=== PATIENT | female | born 1990 | race Caucasian/White ===

== ENCOUNTER 2018-04-26 11:34 | Emergency (ER) | payer BC ==
--- NOTE | 2018-04-26 11:52 | EDM.PDOC ---
ED HPI GENERAL MEDICAL PROBLEM - General Chief Complaint: [employer] Problem Stated Complaint: POSSIBLE MISCARIAGE Time Seen by Provider: 04/26/18 11:50 Source of Information: Reports: Patient, Family, Old Records, RN, RN Notes Reviewed History Limitations: Reports: No Limitations - History of Present Illness INITIAL COMMENTS - FREE TEXT/NARRATIVE: Patient presents to the emergency room at [facility] with concerns of possible spontaneous . The patient is currently 8 weeks 4 days . She states that she started having some scant vaginal bleeding last Friday with mild cramping. The patient was seen by her OB last Friday who offered her reassurance. Lab and urine studies were completed at that time. She did have a positive 2 days ago. The patient states since Friday her bleeding has increased some as well as the cramping. She has also noticed clots when she wipes. This is the patient's first . She has not had any spontaneous abortions in the past. The patient does continue to be sexually active. Onset Date: 04/21/18 - Related Data Allergies Allergy/AdvReac Type Severity Reaction Status Date / Time No Known Allergies Allergy Verified 04/26/18 11:46 Home Meds: Home Meds . [No Known Home Meds] 04/26/18 [History] ED ROS GENERAL - Review of Systems Review Of Systems: See Below Constitutional: Denies: Fever, Chills Respiratory: Denies: Shortness of Breath, Cough Cardiovascular: Denies: Chest Pain, Palpitations : Reports: Other (See HPI) Skin: Reports: No Symptoms Neurological: Reports: No Symptoms ED EXAM - Physical Exam Exam: See Below Exam Limited By: No Limitations General Appearance: Alert, No Apparent Distress Respiratory/Chest: No Respiratory Distress, Lungs Clear, Normal Breath Sounds Cardiovascular: Normal Peripheral Pulses, Regular Rate, Rhythm GI/Abdominal Exam: Normal Bowel Sounds, Soft, Non-Tender (Female) Exam: Other (Deferred; 8 weeks) Neurological: Alert, Oriented Skin Exam: Warm, Dry, Intact, Normal Color Course - Vital Signs Last Recorded V/S: Last Vital Signs Temp 36.5 C 04/26/18 11:35 Pulse 86 04/26/18 11:35 Resp 16 04/26/18 11:35 BP 147/90 H 04/26/18 11:35 Pulse Ox 97 04/26/18 11:35 - Orders/Labs/Meds Orders: Active Orders 24 hr Category Date Time Status CULTURE URINE [RM] Stat Lab 04/26/18 11:55 Received Labs: Laboratory Tests 04/26/18 04/26/18 Range/Units 11:55 11:55 Urine Color Yellow (YELLOW) Urine Appearance Slightly cloudy H (CLEAR) Urine pH 6.0 (5.0-8.0) Ur Specific [place] 1.025 Urine Protein Negative (NEGATIVE) mg/dL Urine Glucose (UA) Negative (NEGATIVE) mg/dL Urine Ketones Negative (NEGATIVE) mg/dL Urine Occult Blood Large H (NEGATIVE) Urine Nitrite Negative (NEGATIVE) Urine Bilirubin Negative (NEGATIVE) Urine Urobilinogen 0.2 (0.2) EU/dL Ur Leukocyte Esterase Trace H (NEGATIVE) Urine RBC 0-5 (NOT SEEN) /HPF Urine WBC 0-5 (NOT SEEN) /HPF Ur Squamous Epith Cells Rare (NEGATIVE) /HPF Urine Bacteria Not seen (NEGATIVE) /HPF Urine Mucus Not seen (NEGATIVE) /LPF Urinalysis Comment See note Urine HCG, Qual Positive H (NEGATIVE) Departure - Departure Time of Disposition: 12:18 Disposition: Home, Self-Care 01 Condition: Good Clinical Impression: Vaginal bleeding affecting early , Positive test, Normal urinalysis - Discharge Information *PRESCRIPTION DRUG MONITORING PROGRAM REVIEWED*: Not Applicable *COPY OF PRESCRIPTION DRUG MONITORING REPORT IN PATIENT LALO: Not Applicable Instructions: Vaginal Bleeding During , First Trimester, [id number] Referrals: Daphne Ibanez [employer] [Nurse Practitioner] - Forms: ED Department Discharge - Problem List Review Problem List Initiated/Reviewed/Updated: Yes - My Orders Last 24 Hours: My Active Orders 04/26/18 11:55 CULTURE URINE [RM] Stat - Assessment/Plan Last 24 Hours: My Active Orders 04/26/18 11:55 CULTURE URINE [RM] Stat Assessment:: Vaginal bleeding in , 8 weeks Positive HCG Normal UA Plan: Assessment and labs discussed with patient. Discussed options of waiting until tomorrow to have an OB ultrasound or being seen in another ER that has OB US capability. Patient has elected to go to [facility] for an OB US today. Records sent with patient.
== END 2018-04-26 12:25 | disposition home or self-care (01) ==
LOC: VM.ED 11:34
DX: O20.9 Hemorrhage in early pregnancy, unspecified (principal); Z3A.08 8 weeks gestation of pregnancy
CPT/HCPCS: 81001; 81025; 87086; 99284